=== PATIENT | female | born 1995 | race Caucasian/White ===

== ENCOUNTER 2017-07-11 17:38 | Emergency (ER) | payer OTHER ==
--- NOTE | 2017-07-11 20:01 | RAD ---
THREE VIEWS OF THE LEFT WRIST: 07/11/17 INDICATION: Left wrist laceration. COMPARISON: None. FINDINGS: No radiopaque foreign body is evident. No acute fracture or subluxation is evident. Carpal alignment is within normal limits. IMPRESSION: No acute osseous abnormality or radiopaque foreign body. POS: [facility]
== END 2017-07-11 20:20 | disposition home or self-care (01) ==
LOC: ERS 17:38
DX: S61.512A Laceration without foreign body of left wrist, initial encounter (principal); F41.9 Anxiety disorder, unspecified; F31.9 Bipolar disorder, unspecified; E56.8 Deficiency of other vitamins; W25.XXXA Contact with sharp glass, initial encounter
CPT/HCPCS: 12002